=== PATIENT | female | born 1980 | race Asian ===

== ENCOUNTER → 2022-01-01 | Outpatient (CLI) | payer SELFPAY ==
--- NOTE | 2022-01-01 22:12 | XR ---
EXAMINATION TYPE: XR chest 2V DATE OF EXAM: 01/01/2022 COMPARISON: NONE HISTORY: Positive PPD skin test. TECHNIQUE: Frontal and lateral views of the chest are obtained. FINDINGS: There is no suspicious focal air space opacity, pleural effusion, or pneumothorax seen. T he cardiac silhouette size is within normal limits. The osseous structures are intact. IMPRESSION: No acute pulmonary process.
== END | disposition home or self-care (01) ==
LOC: RADXRMAIN 16:24
PROVIDERS: ATTEND Family Medicine
DX: R76.11 Nonspecific reaction to tuberculin skin test without active tuberculosis (principal)
CPT/HCPCS: 71046